=== PATIENT | female | born 1995 | race Caucasian/White ===

== ENCOUNTER 2021-09-29 22:02 | Emergency (ER) | payer SELFPAY ==
[~2021-09-29] VITALS: Ht 177.8 cm; Wt 75.7 kg
[2021-09-29 22:09] VITALS: BP 127/66
[2021-09-29 22:21] VITALS: BP 130/74
[2021-09-29] MEDS: KETOROLAC 60 MG/2 ML VIAL IM ONE (22:55)
[2021-09-29] MEDS: LIDOCAINE MPF 1% 10 MG/ML VIAL INJ ONE (23:40)
[2021-09-30] MEDS ORDERED: LIDOCAINE 2% 1000 MG/50 ML VIAL INJ ONE (00:46)
[2021-09-30] MEDS: LIDOCAINE 2% 1000 MG/50 ML VIAL INJ ONE (01:01)
[2021-09-30] MEDS ORDERED: ONDANSETRON 4 MG ODT ONE (01:04)
[2021-09-30] MEDS: ONDANSETRON 4 MG ODT PO ONE (01:07)
[2021-09-30] MEDS ORDERED: KETOROLAC 30 MG/ML VIAL ONE (01:08)
[2021-09-30] MEDS ORDERED: KETOROLAC 60 MG/2 ML VIAL IM ONE (01:09)
[2021-09-30] MEDS ORDERED: IBUP-2213 PO (01:59)
[2021-09-30] MEDS ORDERED: CIPR500T4 PO (01:59)
[2021-09-30 03:39] VITALS: BP 114/60
== END 2021-09-30 03:31 | disposition home or self-care (01) ==
LOC: EDBD 22:02 → MED 22:02
DX: S01.01XA Laceration without foreign body of scalp, initial encounter (principal); N39.0 Urinary tract infection, site not specified; Y04.2XXA Assault by strike against or bumped into by another person, initial encounter; Y93.89 Activity, other specified; Y92.89 Other specified places as the place of occurrence of the external cause; Y99.8 Other external cause status
CPT/HCPCS: 12002; 73130; 81002; 81025; 90471; 90715; 96372; 99284; J1885; J2001; Q0162